=== PATIENT | male | born 1940 | race Caucasian/White ===

== ENCOUNTER 2019-06-21 09:59 | Day surgery (SDC) | payer MEDICARE ==
[~2019-06-21] VITALS: Ht 177.8 cm; Wt 73.0 kg
[2019-06-21 10:43] VITALS: BP 143/71; PULSE 97; TEMP 98.3
[2019-06-21] MEDS ORDERED: EPIPEN 2-PAK1 MG/ML IM (11:07)
[2019-06-21] MEDS ORDERED: ASPIRIN E.C. 8181 MG PO (11:07)
[2019-06-21] MEDS ORDERED: IRON TABLETS325 MG PO (11:07)
[2019-06-21] MEDS ORDERED: CEPHALEXIN500 M1 PO (12:20)
[2019-06-21 13:10] VITALS: BP 140/71; PULSE 55
--- NOTE | 2019-06-21 13:19 | NUR ---
Discharge instructions given to pt.pt verbalizes understanding.Pt escortedout by Marco A Wilde
== END 2019-06-21 13:20 | disposition home or self-care (01) ==
LOC: COL.CAR 09:59
DX: R55 Syncope and collapse (principal); D64.9 Anemia, unspecified; N40.0 Benign prostatic hyperplasia without lower urinary tract symptoms; R94.31 Abnormal electrocardiogram [ECG] [EKG]; I48.0 Paroxysmal atrial fibrillation; I47.1 Supraventricular tachycardia; Z88.2 Allergy status to sulfonamides; Z79.82 Long term (current) use of aspirin; Z85.828 Personal history of other malignant neoplasm of skin; Z82.49 Family history of ischemic heart disease and other diseases of the circulatory system; Z91.048 Other nonmedicinal substance allergy status
CPT/HCPCS: C1764